=== PATIENT | female | born 1960 | race Caucasian/White ===

== ENCOUNTER 2017-11-17 14:14 | Day surgery (SDC) | payer SELFPAY ==
[2017-11-14 15:48] LABS: Hematocrit 41.2 % (37-47); Hemoglobin 13.1 g/dl (12.0-15.0); Mean Corp Hgb Conc 31.8 g/gl (32-36); Mean Corpuscular Hgb 30.9 pg (27.0-32.0); Mean Corpuscular Volume 97.2 fL (81-99); Platelet Count 248 K/mm3 (150-450); RBC Distribution Width CV 14.4 % (11.6-14.6); RBC Distribution Width SD 51.4 fl (35.1-43.9); Red Blood Count 4.24 M/mm3 (4.2-5.4); Scan Indicated on CBC? Y/N NO; White Blood Count 7.1 K/mm3 (4.4-11.0)
[2017-11-14 16:12] LABS: Anion Gap 11 (5-15); BUN 11 mg/dL (7-18); BUN/Creat Ratio 10.6 RATIO (10-20); Chloride 109 mmol/L (98-107); Creatinine, Serum 1.04 mg/dL (0.55-1.02); EST Glomerular Filtration Rate 58 mL/min (>60); Est Glom Filt Rate - Afr Amer 71 mL/min (>60); Glucose 75 mg/dL (74-106); Potassium 3.6 mmol/L (3.5-5.1); Sodium Level 140 mmol/L (136-145)
[2017-11-17 14:33] VITALS: BP 160/96; PULSE 74; RESP 16; TEMP 36.8; O2SAT 100; BMI 32.7
[2017-11-17] MEDS: Celecoxib 200 MG Capsule 400 MG PO (14:53)
[2017-11-17] MEDS: Acetaminophen 500 MG Tablet 1000 MG PO (14:53)
--- NOTE | 2017-11-17 16:07 | PCM.DC.D&C ---
Discharge Diet: No Restrictions Discharge Activity: Return to Normal Activity, May Shower, May Take a Tub Bath - in 2 weeks. May resume sexual activity in: 2 weeks Call your doctor if your incision/area has: Continuous Slow Oozing, Sudden Increased Bleeding, Foul Smelling Discharge Call your doctor if you observe: Fever of 101 or Higher, Using more than one pad per hour Allergies/Adverse Reactions: Allergies clindamycin Adverse Reaction (Verified 11/10/17 11:12) Diarrhea Medications to take at Discharge Topiramate [Topamax] 200 mg PO BID 01/05/17 buPROPion tablets [Wellbutrin tablets] 100 mg PO DAILY 01/05/17 Primary Care Physician: Care Physician,No Primary [Primary Care Provider] - Test Results: Test results from this visit will be discussed in further detail at your follow-up appointment, if applicable. Please Follow Up With: Carlyn Perez MD - [phone] When: 2-4 weeks or prn
--- NOTE | 2017-11-17 16:41 | PCM.OPRPT ---
Report of Operation Date of Procedure: 11/17/17 Pre-Operative Diagnosis: PMB, thickened endometrium, bicornuate uterus Post-Operative Diagnosis: same Surgery/Procedure Performed:: Hysteroscopy dilation and curettage Description of Surgical Findings:: thin endometrium, bicornuate w/ 2 sided cavity, no focal fibroids or polyps green building engineer: Robbie Khan Type of Anesthesia:: MAC/Supplemental/Local Special Medications: none Specimen's removed: endometrial curettings Drains: none Estimated Blood Loss (mL): 15cc Fluids Replaced: 1000 cc LR Description of Procedure: The patient was taken to the OR where she was prepped and draped in dorsal lithotomy position. The weighted speculum was placed in the vagina and the anterior lip of the cervix was grasped with a single-tooth tenaculum. A paracervical block was administered with 1% lidocaine with 1-100,000 epinephrine solution. The cervix was dilated serially with Hegar dilators. The 5mm hysteroscope was placed into the uterine cavity and the above findings were noted. Bilateral tubal ostia were identified. There division between the 2 sides of the bicornuate uterus was very distinct and extended down to the level of the internal cervical loss. The hysteroscope was removed. A gentle sharp curettage was done of the uterine cavity. The instruments were removed from the vagina. The specimen was handed off and sent to pathology. All sponge and needle counts were correct. Vaginal sweep was performed by me. The patient was awakened and taken to the recovery room in stable condition. The hysteroscopic fluid deficit was 0 cc the symphion scope and fluid management system was used Grafts/Implants Used: none - Complications none - Admit VTE Documentation VTE Present on Admission: No VTE Mechan Device Prophylaxis: SCD's VTE Pharm Prophylaxis ordered?: No Reason prophylaxis not ordered:: Procedure Not Indicated
[2017-11-17 16:49] VITALS: BP 124/72; BP 160/96; PULSE 91; RESP 16; TEMP 36.1; O2SAT 94
[2017-11-17 16:55] VITALS: BP 117/72; BP 160/96; PULSE 88; RESP 16; O2SAT 96
[2017-11-17 17:00] VITALS: BP 113/74; BP 160/96; PULSE 86; RESP 16; O2SAT 96
[2017-11-17 17:04] VITALS: BP 112/76; BP 160/96; PULSE 88; RESP 16; TEMP 36.6; O2SAT 98
[2017-11-17] MEDS: HYDROcodone Bitartrate/Apap 5/325 Tablet PO (17:28)
[2017-11-17 17:55] VITALS: BP 133/72; BP 160/96; PULSE 76; RESP 18; TEMP 36.6; O2SAT 100
--- NOTE | 2017-11-18 | EMB_PTH ---
PATIENT: CELINA BURGOS LOC: [facility] U#:[id number] AGE/SX: 56/F ROOM: RE11/17/[address]: Dr. Carlyn Perez MD : 1960 BED: DIS: 11/17/2017 SPEC #: [id number] RECD: 11/18/17 10:08 STATUS: RADHA REMichael #: [id number] CHARO: 11/18/17 00:[address]: Carlyn Perez DEPT: SURGICAL PATHOLOGY RECD BY: Hakeem Anne ENTERED: 11/18/17 10:09 SP TYPE: ENDOM BX/C ROSALIE DR: No Primary Care Phys Tissues: Endometrium, NOS Procedures: Surgery Specimen Level IV HEADER OPERATION: Hysteroscopy, D & C PRE-OP DIAGNOSIS: Postmenopausal bleeding, thickened endometrium TISSUE SUBMITTED: Endometrial curettings MICROSCOPIC DIAGNOSIS Endometrial curettings: Scant strips of benign endometrial epithelium and superficial fragments of benign endometrial tissue, consistent with atrophic endometrium. Fragments of benign ecto- and endocervical mucosa. FERNANDO:ayaka 11/22/17 MICROSCOPIC DESCRIPTION Slides are reviewed. GROSS DESCRIPTION Received in fixative is one container labeled with the patient's name and designated endometrial curettings. The specimen consists of multiple minute and mucoid fragments of dozier tissue that in aggregate measure 0.5 x 0.3 x <0.1 cm. The specimen is totally submitted in one cassette. / AM:ayaka 11/18/17 TC:4 CPT: 15270
== END 2017-11-17 18:01 | disposition home or self-care (01) ==
LOC: SDC 14:20 → AC 14:21
PROVIDERS: Visit Provider Obstetrics & Gynecology
PROC: (CPT 58558; principal; 2017-11-17 15:35)
DX: N95.0 Postmenopausal bleeding (principal); Q51.3 Bicornate uterus; R93.8 Abnormal findings on diagnostic imaging of other specified body structures; N85.8 Other specified noninflammatory disorders of uterus; F32.9 Major depressive disorder, single episode, unspecified; F17.210 Nicotine dependence, cigarettes, uncomplicated; Z79.899 Other long term (current) drug therapy; Z85.3 Personal history of malignant neoplasm of breast
CPT/HCPCS: 00952; 58558; 36415; 80048; 85027; 86850; 86900; 88305; J7120

== ENCOUNTER 2018-03-03 14:34 | Emergency (ER) | payer SELFPAY ==
[2018-03-03 14:35] VITALS: PULSE 90; RESP 16; TEMP 37.1; O2SAT 98; BMI 28.3
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
[2018-03-03 16:20] VITALS: BP 108/76; PULSE 59; RESP 16; O2SAT 99
[2018-03-03 17:43] LABS: HIV - WCH Non-Reactive (Nonreactive)
[2018-03-06 10:37] LABS: HEPATITIS B SURFACE AG Negative (Negative); Hep B Surface Antibodies EMP Reactive (.); Hep C Antibodies 0.1 s/co ratio (0.0-0.9)
--- OUTSIDE RECORDS SUMMARY | 2018-06-07 06:31 | XMS RPT_ITS ---
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 ER) 10 mg ER tablet Take 30 mg by mouth once daily. PAST MEDICAL HISTORY Diagnosis Date - History of breast cancer - HSV-1 infection genital PAST SURGICAL HISTORY Procedure Laterality Date - SECTION HX 1990 - HERNIA REPAIR HX 05/2009 - MASTECTOMY HX Bilateral 05/05/2009 FAMILY HISTORY Problem Relation Age of Onset - Breast Cancer Mother Social History Marital status: Spouse name: Years of education: Number of children: Occupational History Occupation Employer Comment member [employer] Social History Main Topics Smoking status: Current Every Day Smoker Packs/day: 0.50 Years: 5.00 Types: Cigarettes Smokeless tobacco: Never Used Comment: vape Alcohol use: Yes Comment: occ Drug use: No Sexual activity: Yes Partners with: Male control/protection: None REVIEW OF SYSTEMS: General: No chills, fever, weight loss, night sweats. SHEENT: No change in vision or auditory acuity. Respiratory: No productive cough. Cardiac: As noted above. GI: No melena. : No dysuria. Musculoskeletal: No myalgias. Neurologic: No strokes. Psychiatric: No depression. Endocrine: No diabetes. Hematologic: No anemia. PHYSICAL EXAMINATION: S/he is alert and in no distress VITAL SIGNS: BP 136/87 Pulse 98 Wt 174 lb 9.6 oz (79.2kg) LMP 08/29/2017 SHEENT: Skin is warm and dry. Pupils are round and reactive. Retinal vessels are grossly unremarkable. No xanthelasmas appreciated. Pharynx is benign. There is no oral cyanosis. Neck: supple. No adenopathy or thyroid enlargement. Chest: Clear to percussion and auscultation. Trachea is midline. Air entry is equal. There is no chest wall tenderness. Cardiac: Regular rhythm. S1 and S2 are normal. PMI is nondisplaced. There are no murmurs, rubs or gallops. No click is heard. Carotids are brisk without bruits. JVP is less than 10 cm. Abdomen: Soft and nontender. There are no pulsatile masses or bruits. No liver enlargement. Bowel sounds are active. : Deferred. Extremities: No edema. Pulses are intact and symmetrical. No clubbing or cyanosis. No femoral bruits. Neurologic: Grossly normal motor and sensory. S/he is alert and oriented x4. Musculoskeletal: No joint deformities. EKG shows left axis deviation. There is slow R wave progression, likely secondary to the conduction abnormality. Recent lower extremity venous Doppler examination was negative for thrombosis. Recent labs reviewed. CBC is within normal limits. Renal function is borderline low. Electronically Signed: Rock King MD November 15, 2017 3:47 PM CC: No primary care provider on file. Rock King MD 11/15/2017 3:48 PM Signed LIFESTYLE CHANGE A healthy lifestyle is the most important component of your overall treatment plan. Please give serious thought to the following areas and commit to making intermediate card tender changes. EAT A WHOLE FOOD, PLANT BASED DIET The nutrition your body gets is more important than the medicine you take. What matters most is the overall way you eat. We encourage you to minimize the use of animal products (which include dairy and all meats except fatty fish) and use whole, unprocessed plant foods to provide your protein, vitamins and other nutrients. We have a lot of information to share with you on this topic. This is not a diet. It is a way of life that you will keep with you. EXERCISE REGULARLY It is not important to spend hours in the gym, lifting weights and perspiring heavily. A total of 2-3 hours per week of aerobic (causing you to be moderately short of breath) exercise is sufficient to improve your health. Talk to us before you begin a new exercise program, if you have heart disease or experience shortness of breath or chest pain. REDUCE STRESS Chronic emotional and physical stress leads to disease. Ways of reducing stress include meditation, visualization, prayer, yoga and other forms of relaxation therapy. Consistency is the torres. Find a technique that works for you and do it every day. CULTIVATE RELATIONSHIPS Loneliness and isolation have a major negative impact on health. Seek out others who can love, care for and nurture you. Avoid hurtful relationships. MAINTAIN IDEAL BODY WEIGHT The best way to do this is to do all the things above. Our bodies naturally find the right weight if we keep moving and feed ourselves the right food. If your BMI is greater than 25, we strongly recommend a referral to a weight management program. Please speak to us or your family physician about available programs. AVOID NICOTINE IN ALL FORMS This includes all tobacco products, whether chewed, smoked, vaped, or rubbed on the skin. Smoking cessation programs, which can make use of tobacco substitutes, medications to suppress cravings and behavior management, are available. Please contact your family physician about programs in your area. Referring Provider: ROCK KING [[id number]] Allergies As of Date: 11/15/2017 Noted Allergy Reaction CLINDAMYCIN 01/05/2017 6 - Diarrhea Date Reviewed: 11/15/2017 Reviewed by: Tu Gay RN - Fully Assessed Reason for Visit: Consult [502] Visit Diagnosis:Preop cardiovascular exam [Z01.810] Order(s):ECG COMPLETE W INTERPRETATION [ECG01] Order #: [id number] FUTURE COMPLETE ECG [4741684] Order #: [id number]. #:[id number]--BVMBekcZvl: 1 Prescriptions as of 11/15/2017 Sig: IBUPROFEN 600 MG TABLET Take 1 tablet by mouth every * TOPIRAMATE 200 MG TABLET Take 200 mg by mouth twice da* BUPROPION HCL 100 MG TABLET Take 100 mg by mouth twice da* METHYLPHENIDATE ER 10 MG TABL* Take 30 mg by mouth once vladimir* Problem List As Of Date 11/15/2017 Noted Resolved Obesity, Class I, BMI 30-34.9 [E66.9] INVALID FOR* Other instructions from your clinician: LIFESTYLE CHANGE A healthy lifestyle is the most important component of your overall treatment plan. Please give serious thought to the following areas and commit to making fci changes. EAT A WHOLE FOOD, PLANT BASED DIET The nutrition your body gets is more important than the medicine you take. What matters most is the overall way you eat. We encourage you to minimize the use of animal products (which include dairy and all meats except fatty fish) and use whole, unprocessed plant foods to provide your protein, vitamins and other nutrients. We have a lot of information to share with you on this topic. This is not a diet. It is a way of life that you will keep with you. EXERCISE REGULARLY It is not important to spend hours in the gym, lifting weights and perspiring heavily. A total of 2-3 hours per week of aerobic (causing you to be moderately short of breath) exercise is sufficient to improve your health. Talk to us before you begin a new exercise program, if you have heart disease or experience shortness of breath or chest pain. REDUCE STRESS Chronic emotional and physical stress leads to disease. Ways of reducing stress include meditation, visualization, prayer, yoga and other forms of relaxation therapy. Consistency is the torres. Find a technique that works for you and do it every day. CULTIVATE RELATIONSHIPS Loneliness and isolation have a major negative impact on health. Seek out others who can love, care for and nurture you. Avoid hurtful relationships. MAINTAIN IDEAL BODY WEIGHT The best way to do this is to do all the things above. Our bodies naturally find the right weight if we keep moving and feed ourselves the right food. If your BMI is greater than 25, we strongly recommend a referral to a weight management program. Please speak to us or your family physician about available programs. AVOID NICOTINE IN ALL FORMS This includes all tobacco products, whether chewed, smoked, vaped, or rubbed on the skin. Smoking cessation programs, which can make use of tobacco substitutes, medications to suppress cravings and behavior management, are available. Please contact your family physician about programs in your area. Follow-up and Disposition History Recorded Encounter Status:Closed by ROCK KING MD on 11/15/17 CNNURSE Observed: 11/15/2017 Status: COMPLETED Source: [place] 1:45 PM [facility] REPOSITORY Nurse Visit (CAWSTR) CELINA MORGAN ([id number]) 1960 F Date Time Provider Department 11/15/17 1:45 PM [facility] During your visit today, we recorded the following information about you: Tu Gay RN 11/16/2017 5:13 PM Signed Ekg completed per order. Pt tolerated procedure without distress. Tu Gay RN Referring Provider: ROCK KING [[id number]] Allergies As of Date: 11/15/2017 Noted Allergy Reaction CLINDAMYCIN 01/05/2017 6 - Diarrhea Date Reviewed: 11/15/2017 Reviewed by: Tu Gay RN - Fully Assessed Reason for Visit: Nurse Visit [792] Visit Diagnosis:Preop cardiovascular exam [Z01.810] Order(s):ECG COMPLETE W INTERPRETATION [ECG01] Order #: [id number] Prescriptions as of 11/15/2017 Sig: IBUPROFEN 600 MG TABLET Take 1 tablet by mouth every * TOPIRAMATE 200 MG TABLET Take 200 mg by mouth twice da* BUPROPION HCL 100 MG TABLET Take 100 mg by mouth twice da* METHYLPHENIDATE ER 10 MG TABL* Take 30 mg by mouth once vladimir* Problem List As Of Date 11/15/2017 Noted Resolved Obesity, Class I, BMI 30-34.9 [E66.9] INVALID FOR* Visit Notes: >> Tu Gay RN TueNov 16, 2017 5:12 PM Status: Signed Ekg completed per order. Pt tolerated procedure without distress. Tu Gay RN Encounter Status:Closed by TU GAY RN on 11/16/17 CBC-COMPLETE BLOOD CNT Collected: 11/14/2017 Status: F Source: [place] NO DIFF 2:39 PM [facility] REPOSITORY TYPE CODE TESTS RESULT OUT OF RANGE REFERENCE UNITS LAB L100.1000 4.4-11.0 K/mm3 Normal WBC 7.1 LAB L100.1200 4.2-5.4 M/mm3 Normal RBC 4.24 LAB L100.1300 12.0-15.0 g/dl Normal HGB 13.1 LAB L100.1400 37-47 % Normal HCT 41.2 LAB L100.1500 81-99 fL Normal MCV 97.2 LAB L100.1600 27.0-32.0 pg Normal MCH 30.9 LAB L100.1700 32-36 g/gl Low MCHC 31.8 LAB L100.1810 11.6-14.6 % Normal RDW CV 14.4 LAB L100.1820 35.1-43.9 fl High RDW SD 51.4 LAB L100.1900 150-450 K/mm3 Normal PLT 248 LAB L100.2000 6.2-12.0 fl Normal MPV 10.0 Performed By: #### L100.0500 #### [facility] [address] [place], [place], [id number] BASIC METABOLIC Collected: 11/14/2017 Status: F Source: [place] PROFILE (BMP) 2:39 PM [facility] REPOSITORY TYPE CODE TESTS RESULT OUT OF RANGE REFERENCE UNITS LAB L501.0100 74-106 mg/dL Normal GLU 75 Result Comment: Please note revised GLUCOSE reference range effective 2017. LAB L501.1000 7-18 mg/dL Normal BUN 11 LAB L501.1100 0.55-1.02 mg/dL High CREAT,SERUM 1.04 Result Comment: The validity of the calculated GFR AND GFRAA in patients over 70 years has not been determined. Clinical correlation is essential. LAB L501.1110 >60 mL/min Low EST GFR 58 Result Comment: Non- GFR Calc LAB L501.1115 >60 mL/min Normal EST GFR - AA 71 Result Comment: GFR Calc LAB L501.1300 10-20 RATIO Normal BUN/CRE 10.6 LAB L501.2200 8.5-10.1 mg/dL CA Normal 9.0 LAB L501.5300 136-145 mmol/L NA Normal 140 LAB L501.5600 3.5-5.1 mmol/L K Normal 3.6 LAB L501.5900 98-107 mmol/L High CL 109 LAB L501.6100 21.0-32.0 mmol/L Low CO2 20.0 LAB L501.6200 5-15 Normal GAP 11 Performed By: #### L500.2500 #### [facility] [address] [place], [place], [address] TYPE AND SCREEN Collected: 11/14/2017 Status: F Source: [place] 2:39 PM [facility] REPOSITORY Order Comment: Surgery Date: 11/17/17 Hx of Preganancy in last 3 Months No Ever experience any problems with transfusion(s)? N Hx of Transfusion in last 3 Months N Reason for Type AND Screen/Red Cells: SURGERY Time: 0000 SURGICAL PROCEDURE: HYSTEROSCOPY TYPE CODE TESTS RESULT OUT OF RANGE REFERENCE UNITS LAB B10.0800 A Normal BLOOD TYPE GEL POSITIVE LAB B100.4000 Normal Antibody NEGATIVE Screen Performed By: #### B101.7475 #### [facility] [address] [place], [place], [address] HISTORY PHYSICAL Observed: 11/09/2017 Status: COMPLETED Source: [place] 11:23 AM [facility] REPOSITORY O ID: [id number] Author: Floridalma Sterling Service: (none) Author Type: Physician Type: HANDP Filed: 11/09/2017 11:50 AM Note Text: Pre-Op History and Physical HPI: The patient is a 56 year old female presenting for pre-operative visit. She is scheduled for hysteroscopy dilation and curettage and polyp resection, for PMB and thickened endometrium on 11/17/17. Procedure discussed along with risks, benefits and complications. Other alternatives discussed for management. Consent form signed? Yes. PAST MEDICAL HISTORY Diagnosis Date - History of breast cancer - HSV-1 infection genital PAST SURGICAL HISTORY Procedure Laterality Date - SECTION HX 1990 - HERNIA REPAIR HX 05/2009 - MASTECTOMY HX Bilateral 05/05/2009 Current Outpatient Prescriptions: topiramate (TOPAMAX) 200 mg tablet Take 200 mg by mouth twice daily. Disp: Rfl: buPROPion (WELLBUTRIN) 100 mg tablet Take 100 mg by mouth twice daily. 2 tabs in am, 1 tab in pm Disp: Rfl: methylphenidate ER (METADATE ER) 10 mg ER tablet Take 30 mg by mouth once daily. Disp: Rfl: No current facility-administered medications for this visit. ALLERGIES: Clindamycin PERSONAL HISTORY: Social History Marital status: Spouse name: Years of education: Number of children: Occupational History Occupation Employer Comment member [employer] Social History Main Topics Smoking status: Current Every Day Smoker Packs/day: 0.50 Years: 5.00 Types: Cigarettes Smokeless tobacco: Never Used Comment: vape Alcohol use: Yes Comment: occ Drug use: No Sexual activity: Yes Partners with: Male control/protection: None FAMILY HISTORY: FAMILY HISTORY Problem Relation Age of Onset - Breast Cancer Mother REVIEW OF SYMPTOMS: GENERAL: denies fevers or chills ENDOCRINOLOGY: has not been on steroids Cardiology : denies palpitations or chest pain Respiratory: denies SOB or cough Hematology: denies history of prolonged bleeding or easy bruising or VTE Allergy: Denies history of personal or family history of allergy to anesthesia PHYSICAL EXAMINATION: VITALS: There were no vitals taken for this visit. GENERAL: The patient is well nourished, well hydrated in no acute distress. , The patient is oriented to time, place, and person. NECK: Supple. No lynphadenopathy, normal thyroid, no thyromegaly. LUNGS: Clear to auscultation bilaterally. no wheezes, rhonchi or rales HEART: Regular rate and rhythm, Normal heart sounds and No murmurs or gallops PELVIC US- DATE OF EXAM: Oct 03 2017 ?3:19PM ? [facility] ? 1060 ?- ?US FEMALE PELVIS TRANSVAG ?/ PROCEDURE REASON: Postmenopausal bleeding ?? ? * * * * Physician Interpretation * * * * ?EXAMINATION: ?US FEMALE PELVIS TRANSVAG CLINICAL HISTORY: ? Postmenopausal bleeding Comparison: None RESULT: Uterus measures 13.1 x 9.6 x 6.6 cm. ?Small subendometrial cyst in the mid uterine body posteriorly measures 0.9 cm. Bicornuate and/or septate uterus. ?Endometrium appears uniform , and measures 0.8 cm. on both sides. Right ovary is not visualized with the transabdominal or endovaginal probe. ?Left ovary appears normal and measures 2.5 x 2.4 x 1.7 cm. No free pelvic fluid. No evidence of pathologic adnexal mass. Pap and HPV neg 10/18// IMPRESSION: PMB, thickened endometrium PLAN: The risks/benefits/alternatives and personal involved for the planned hysteroscopy dilation and curettage and polyp resection were reviewed with the patient. Her questions were answered to her satisfaction and she desires to proceed. Consent was signed. I reviewed with her postop instructions and expectations. I have reviewed and updated past medical and surgical history, medications and allergies Floridalma Sterling M.D. CNOV Observed: 11/09/2017 Status: COMPLETED Source: [place] 11:10 AM [facility] REPOSITORY Office Visit (WOOB) CELINA MORGAN ([id number]) 1960 F Date Time Provider Department 11/09/17 11:10 AM FLORIDALMA STERLING WOOB During your visit today, we recorded the following information about you: Blood pressure Weight Height 120/82 78.9 kg 1.549 m Floridalma Sterling MD 11/09/2017 11:50 AM Signed Pre-Op History and Physical HPI: The patient is a 56 year old female presenting for pre- operative visit. She is scheduled for hysteroscopy dilation and curettage and polyp resection, for PMB and thickened endometrium on 11/17/17. Procedure discussed along with risks, benefits and complications. Other alternatives discussed for management. Consent form signed? Yes. PAST MEDICAL HISTORY Diagnosis Date - History of breast cancer - HSV-1 infection genital PAST SURGICAL HISTORY Procedure Laterality Date - SECTION HX 1990 - HERNIA REPAIR HX 05/2009 - MASTECTOMY HX Bilateral 05/05/2009 Current Outpatient Prescriptions: topiramate (TOPAMAX) 200 mg tablet Take 200 mg by mouth twice daily. Disp: Rfl: buPROPion (WELLBUTRIN) 100 mg tablet Take 100 mg by mouth twice daily. 2 tabs in am, 1 tab in pm Disp: Rfl: methylphenidate ER (METADATE ER) 10 mg ER tablet Take 30 mg by mouth once daily. Disp: Rfl: No current facility-administered medications for this visit. ALLERGIES: Clindamycin PERSONAL HISTORY: Social History Marital status: Spouse name: Years of education: Number of children: Occupational History Occupation Employer Comment member [employer] Social History Main Topics Smoking status: Current Every Day Smoker Packs/day: 0.50 Years: 5.00 Types: Cigarettes Smokeless tobacco: Never Used Comment: vape Alcohol use: Yes Comment: occ Drug use: No Sexual activity: Yes Partners with: Male control/protection: None FAMILY HISTORY: FAMILY HISTORY Problem Relation Age of Onset - Breast Cancer Mother REVIEW OF SYMPTOMS: GENERAL: denies fevers or chills ENDOCRINOLOGY: has not been on steroids Cardiology : denies palpitations or chest pain Respiratory: denies SOB or cough Hematology: denies history of prolonged bleeding or easy bruising or VTE Allergy: Denies history of personal or family history of allergy to anesthesia PHYSICAL EXAMINATION: VITALS: There were no vitals taken for this visit. GENERAL: The patient is well nourished, well hydrated in no acute distress. , The patient is oriented to time, place, and person. NECK: Supple. No lynphadenopathy, normal thyroid, no thyromegaly. LUNGS: Clear to auscultation bilaterally. no wheezes, rhonchi or rales HEART: Regular rate and rhythm, Normal heart sounds and No murmurs or gallops PELVIC US- DATE OF EXAM: Oct 03 2017 ?3:19PM ? [facility] ? 1060 ?- ?US FEMALE PELVIS TRANSVAG ?/ PROCEDURE REASON: Postmenopausal bleeding ?? ? * * * * Physician Interpretation * * * * ?EXAMINATION: ?US FEMALE PELVIS TRANSVAG CLINICAL HISTORY: ? Postmenopausal bleeding Comparison: None RESULT: Uterus measures 13.1 x 9.6 x 6.6 cm. ?Small subendometrial cyst in the mid uterine body posteriorly measures 0.9 cm. Bicornuate and/or septate uterus. ?Endometrium appears uniform , and measures 0.8 cm. on both sides. Right ovary is not visualized with the transabdominal or endovaginal probe. ?Left ovary appears normal and measures 2.5 x 2.4 x 1.7 cm. No free pelvic fluid. No evidence of pathologic adnexal mass. Pap and HPV neg 10/18// IMPRESSION: PMB, thickened endometrium PLAN: The risks/benefits/alternatives and personal involved for the planned hysteroscopy dilation and curettage and polyp resection were reviewed with the patient. Her questions were answered to her satisfaction and she desires to proceed. Consent was signed. I reviewed with her postop instructions and expectations. I have reviewed and updated past medical and surgical history, medications and allergies Floridalma Sterling M.D. Referring Provider: SELF [[id number]] Allergies As of Date: 11/09/2017 Noted Allergy Reaction CLINDAMYCIN 01/05/2017 6 - Diarrhea Date Reviewed: 11/09/2017 Reviewed by: Floridalma Sterling - Fully Assessed Primary Visit Diagnosis:PMB (postmenopausal bleeding) [N95.0] Other Visit Diagnoses:Postoperative pain [G89.18] Endometrial polyp [N84.0] Order(s):HYDROcodone-acetaminophen (NORCO) 5-325 mg per tabletTake 1-2 tablets by mouth every 6 hours as needed for Pain for up to 3 days.Disp: 12 tabletRfl: 0 ibuprofen (MOTRIN) 600 mg tabletTake 1 tablet by mouth every 6 hours as needed for Pain. FOR PAIN.Disp: 30 tabletRfl: 0 Prescriptions as of 11/09/2017 Sig: TOPIRAMATE 200 MG TABLET Take 200 mg by mouth twice da* BUPROPION HCL 100 MG TABLET Take 100 mg by mouth twice da* HYDROCODONE 5 MG-ACETAMINOPHE* Take 1-2 tablets by mouth omayra* IBUPROFEN 600 MG TABLET Take 1 tablet by mouth every * METHYLPHENIDATE ER 10 MG TABL* Take 30 mg by mouth once vladimir* Problem List As Of Date 11/09/2017 Noted Resolved Obesity, Class I, BMI 30-34.9 [E66.9] INVALID FOR* Prescriptions ordered this encounter Disp Refills Start End HYDROCODONE 5 MG-ACETAMINOPHEN 325 M* 12 t* 0 11/09/2017 11/12/2017 Class: Print RX Route: ORAL Sig: Take 1-2 tablets by mouth every 6 hours as needed for Pain for up to 3 days. IBUPROFEN 600 MG TABLET 30 t* 0 11/09/2017 Route: ORAL Sig: Take 1 tablet by mouth every 6 hours as needed for Pain. FOR PAIN. Encounter Status:Closed by FLORIDALMA STERLING MD on 11/09/17 PROGRESS Observed: 10/25/2017 Status: COMPLETED Source: [place] 2:39 PM [facility] [place] REPOSITORY HNO ID: [id number] Author: Floridalma Botello PSR Service: (none) Author Type: (none) Type: Progress Notes Filed: 10/25/2017 2:40 PM Note Text: Pap logged and Normal Pap letter sent to patient Floridalma Botello PSR PROGRESS Observed: 10/25/2017 Status: COMPLETED Source: [place] 12:50 PM [facility] [place] REPOSITORY HNO ID: [id number] Author: Floridalma Sterling Service: (none) Author Type: Physician Type: Progress Notes Filed: 10/25/2017 12:50 PM Note Text: Please send letter about normal pap and follow up one year. Floridalma Sterling MD HPV W/GENOTYPE Collected: 10/18/2017 Status: F Source: [place] 5:10 PM [facility] REPOSITORY TYPE CODE TESTS RESULT OUT OF REFERENCE UNITS RANGE LAB HPVT16 HPV HighRisk Negative for Type 16 HPV DNA high risk type 16 by PCR. LAB HPVT18 HPV HighRisk Negative for Type 18 HPV DNA high risk type 18 by PCR. LAB HPVHRO HPV HighRisk Negative for Other HPV DNA high risk types: 31,33,35,39,45 ,51,52,56,58,5 9,66,68 by PCR. Result Comment: This test was developed and its performance characteristics determined by [facility]'s [facility] [place] ([facility] It has not been cleared or approved by the FDA. [facility] is regulated under CLIA as qualified to perform high-complexity testing. This test is used for clinical purposes. It should not be regarded as inv estigational or for research. Performed By: #### HPVHRR #### [facility] [address] [place], [place] [address] CYTOLOGY Observed: 10/18/2017 Status: C Source: [place] 5:10 PM [facility] [place] REPOSITORY ADDITIONAL PROCEDURES PRESENT Specimen originated from [facility] Specimen #: [id number] Submitting Physician: FLORIDALMA STERLING M.D. ([id number]) SPECIMEN SUBMITTED A: CERVICAL, SCREENING, FLUID FINAL DIAGNOSIS A. CERVICAL, SCREENING, FLUID Satisfactory for interpretation. Negative for intraepithelial lesion or malignancy. Acute inflammation. This specimen has been analyzed by the ThinPrep Imaging System, an automated imaging and review system, which assists the laboratory in evaluating cells on ThinPrep Pap tests. Following automated imaging, selected boyd from every slide are reviewed by a bolt header. ESTELLA Cunha(ASCP) (Electronic Signature) ADDITIONAL PROCEDURE(S) HUMAN PAPILLOMA VIRUS Date Ordered: 10/20/2017 Date Reported: 10/21/2017 Procedure Results and Interpretation Negative for HPV DNA high risk type 16 by PCR. Negative for HPV DNA high risk type 18 by PCR. Negative for HPV DNA high risk types: 31,33,35,39,45,51,52,56,58,59,66,68 by PCR. This test was developed and its performance characteristics determined by [facility]'s Blade Adkins [facility] Pathology and Laboratory Medicine [place] [facility] It has not been cleared or approved by the FDA. [facility] is regulated under CLIA as qualified to perform high-complexity testing. This test is used for clinical purposes. It should not be regarded as investigational or for research. CLINICAL DATA ROUTINE EXAM, HPV Testing: Yes, automatic HPV patients over 30 Date of Last Menstrual Period: 08/29/2017 STAINS A: CERVICAL, SCREENING, FLUID THIN PREP GRAIN UNLOADER MACHINE Lurdes Pickett M.D., Project Controls Scheduler Date of Report: 10/25/2017 Date of Procedure: 10/18/2017 Date of Receipt: 10/20/2017 Submitted by: FLORIDALMA STERLING M.D. ([id number]) Location: [facility] Diagnostic interpretation performed at [facility], [address] [place], [place] [id number]. The Pap Smear is a screening test for cervical cancer. False negative results occur with all screening tests, emphasizing the need for rescreening at recommended intervals, and clinical correlation. GC/CHLAMYDIA AMPLIF Collected: 10/18/2017 Status: F Source: [place] 9:30 AM [facility] REPOSITORY TYPE CODE TESTS RESULT OUT OF REFERENCE UNITS RANGE LAB GCCTSR GC/Chlam Amp Cervix Source LAB GCAMPL GC Negative Amplification for Neisseria gonorrhoeae by amplification. LAB CLAMPL Chlamydia Negative Amplif for Chlamydia trachomatis by amplification. Performed By: #### GCCT #### [address], [place] [address] PROGRESS Observed: 10/18/2017 Status: COMPLETED Source: [place] 8:57 AM [facility] REPOSITORY HNO ID: [id number] Author: Floridalma Sterling Service: (none) Author Type: Physician Type: Progress Notes Filed: 10/18/2017 5:51 PM Note Text: 56 year old who presents with complaints of PMB. No menses for 3 years and then had heaviness. had a bleed in mid August, was 2 weeks. Was fairly heavy and changed heavy pads several times a day. No SOB/lightheadedness. She had h/o breast cancer and was on tamoxifen until about a year ago. Pelvic pain is achy. Pressure. Has had a lot of surgery on abdomen due to breast reconstruction, one c/s. 7 vaginal deliveries. one DANDC after miscarriage and 3 other miscarriages. LMP: Patient's last menstrual period was 08/29/2017 (exact date). n/a Heavy bleeding? Yes Intermenstrual bleeding/spotting? No Dysmenorrhea? No History of fibroids? No History of endometrial polyps? No Sexually active: Yes History of STDS: None Patient concerns for STD exposure: Yes: + HSV 1 test of lesion, partner w/ h/o oral HSV Pain with intercourse: No Postcoital bleeding: No Last Pap: many years uncertaion HPV: uncertain History of abnormal pap: No PAST MEDICAL HISTORY Diagnosis Date - History of breast cancer PAST SURGICAL HISTORY Procedure Laterality Date - SECTION HX 1990 - HERNIA REPAIR HX 05/2009 - MASTECTOMY HX Bilateral 05/05/2009 FAMILY HISTORY Problem Relation Age of Onset - Breast Cancer Mother SOCIAL HISTORY Social History Substance Use Topics - Smoking status: Current Every Day Smoker Packs/day: 0.50 Years: 5.00 Types: Cigarettes - Smokeless tobacco: Never Used Comment: vape - Alcohol use Yes Comment: occ REVIEW OF SYSTEMS No recent weight gain or weight loss. Abdomen: No abdominal pain, nausea, vomiting, diarrhea, or constipation. No bloating, early satiety, indigestion, or increased flatulence. Bladder: see HPI. EXAM: BP 126/84 Wt 171 lb (77.6kg) LMP 08/29/2017 GENERAL: pleasant, female in no apparent distress ABDOMEN: soft, no hernia, no masses, Mild tenderness in Generalized, rebound Absent and guarding Absent PELVIC: external genitalia normal, normal mons, normal hair distribution pattern, normal labia. normal Bartholin's glands, urethra, Hyder's glands, no vulvar lesions, normal appearing perineal body and perianal region, cervix surgically absent, cystocele 1st degree, rectocele 1st degree, atrophic changes, normal cervix, no lesions. No blood in vault BIMANUAL: uterus normal size, shape and consistency, no adnexal masses and non-tender RECTOVAGINAL: deferred. ASSESSMENT: PMB, thickened endometrium, genital HSV type 1, endometrial polyps PLAN: Reviewed US, endometrial biopsy that showed thickened endometrium and polyp tissue respectively. R/b/A/P to hysteroscopy DANDC w/ possible polyp resection were reviewed, her questions were answered to her satisfaction and she desires to proceed. HSV- gential type 1. reviewed this w/ her. Partner w/ h/o oral HSV. reassured they will not reinfect each other. However, d/w her she would be contagious to other partners potentially. Transmission reviewed Floridalma Sterling MD CNOV Observed: 10/18/2017 Status: COMPLETED Source: [place] 8:40 AM [facility] REPOSITORY Office Visit (WOOB) CELINA MORGAN ([id number]) 1960 F Date Time Provider Department 10/18/17 8:40 AM FLORIDALMA STERLING During your visit today, we recorded the following information about you: Blood pressure Weight Last Period 126/84 77.6 kg 08/29/17 Floridalma Sterling MD 10/18/2017 5:51 PM Signed 56 year old who presents with complaints of PMB. No menses for 3 years and then had heaviness. had a bleed in mid August, was 2 weeks. Was fairly heavy and changed heavy pads several times a day. No SOB/lightheadedness. She had h/o breast cancer and was on tamoxifen until about a year ago. Pelvic pain is achy. Pressure. Has had a lot of surgery on abdomen due to breast reconstruction, one c/s. 7 vaginal deliveries. one DANDC after miscarriage and 3 other miscarriages. LMP: Patient's last menstrual period was 08/29/2017 (exact date). n/a Heavy bleeding? Yes Intermenstrual bleeding/spotting? No Dysmenorrhea? No History of fibroids? No History of endometrial polyps? No Sexually active: Yes History of STDS: None Patient concerns for STD exposure: Yes: + HSV 1 test of lesion, partner w/ h/o oral HSV Pain with intercourse: No Postcoital bleeding: No Last Pap: many years uncertaion HPV: uncertain History of abnormal pap: No PAST MEDICAL HISTORY Diagnosis Date - History of breast cancer PAST SURGICAL HISTORY Procedure Laterality Date - SECTION HX 1990 - HERNIA REPAIR HX 05/2009 - MASTECTOMY HX Bilateral 05/05/2009 FAMILY HISTORY Problem Relation Age of Onset - Breast Cancer Mother SOCIAL HISTORY Social History Substance Use Topics - Smoking status: Current Every Day Smoker Packs/day: 0.50 Years: 5.00 Types: Cigarettes - Smokeless tobacco: Never Used Comment: vape - Alcohol use Yes Comment: occ REVIEW OF SYSTEMS No recent weight gain or weight loss. Abdomen: No abdominal pain, nausea, vomiting, diarrhea, or constipation. No bloating, early satiety, indigestion, or increased flatulence. Bladder: see HPI. EXAM: BP 126/84 Wt 171 lb (77.6kg) LMP 08/29/2017 GENERAL: pleasant, female in no apparent distress ABDOMEN: soft, no hernia, no masses, Mild tenderness in Generalized, rebound Absent and guarding Absent PELVIC: external genitalia normal, normal mons, normal hair distribution pattern, normal labia. normal Bartholin's glands, urethra, Hyder's glands, no vulvar lesions, normal appearing perineal body and perianal region, cervix surgically absent, cystocele 1st degree, rectocele 1st degree, atrophic changes, normal cervix, no lesions. No blood in vault BIMANUAL: uterus normal size, shape and consistency, no adnexal masses and non-tender RECTOVAGINAL: deferred. ASSESSMENT: PMB, thickened endometrium, genital HSV type 1, endometrial polyps PLAN: Reviewed US, endometrial biopsy that showed thickened endometrium and polyp tissue respectively. R/b/A/P to hysteroscopy DANDC w/ possible polyp resection were reviewed, her questions were answered to her satisfaction and she desires to proceed. HSV- gential type 1. reviewed this w/ her. Partner w/ h/o oral HSV. reassured they will not reinfect each other. However, d/w her she would be contagious to other partners potentially. Transmission reviewed MD Floridalma Gamboa MD 10/25/2017 12:50 PM Signed Please send letter about normal pap and follow up one year. MD Floridalma Garcia PSR 10/25/2017 2:40 PM Signed Pap logged and Normal Pap letter sent to patient Floridalma Botello PSR Referring Provider: SELF [[id number]] Allergies As of Date: 10/18/2017 (No Known Allergies) Date Reviewed: 09/27/2017 Reviewed by: Candy Asif - Fully Assessed Primary Visit Diagnosis:Visit for screening mammogram [Z12.31] Other Visit Diagnoses:Obesity, Class I, BMI 30-34.9 [E66.9] Special screening examination for human papillomavirus (HPV) [Z11.51] Screening for malignant neoplasm of cervix [Z12.4] Screening examination for venereal disease [Z11.3] PMB (postmenopausal bleeding) [N95.0] Epidermal thickening [L85.9] Endometrial polyp [N84.0] Herpes simplex vulvovaginitis [A60.04] Order(s):ASHLEY SCREENING [[id number]] Order #: [id number] FUTURE PAP FLUID CERVICAL SCREENING [[id number]] Order #: [id number]. #:[id number] GC/CHLAMYDIA DNA DET [SQGCCAMP] Order #: [id number]. #:[id number] HPV W/GENOTYPE [SQHPVHRR] Order #: [id number]. #:[id number] Prescriptions as of 10/18/2017 Sig: TOPIRAMATE 200 MG TABLET Take 200 mg by mouth twice da* BUPROPION HCL 100 MG TABLET Take 100 mg by mouth twice da* METHYLPHENIDATE ER 10 MG TABL* Take 30 mg by mouth once vladimir* Problem List As Of Date 10/18/2017 Noted Resolved Obesity, Class I, BMI 30-34.9 [E66.9] INVALID FOR* Letter Text Floridalma Sterling M.D. [facility] [address] [place], [place] [address] Celina Morgan [address] [facility] [address] 10/25/2017 [facility]: [id number] Dear Celina, We are pleased to inform you that your recent Pap Test was within normal limits. Because Pap tests are so effective in the early detection of cervical cancer, you are encouraged to continue having the test at regular intervals. You will be due for a 1 year Gynecological Exam after this date 10/18/2018. If you have any questions regarding the above information, do not hesitate to call our office at between the hours of 8:00 a.m. and 5:00 p.m. Sincerely, Floridalma Sterling M.D. Encounter Status:Closed by FLORIDALMA STERLING MD on 10/18/17 PROGRESS Observed: 10/03/2017 Status: COMPLETED Source: [place] 3:22 PM [facility] REPOSITORY O ID: [id number] Author: Christina Landon Service: (none) Author Type: Toilet Products Molder Type: Progress Notes Filed: 10/03/2017 3:22 PM Note Text: Radiology Service Progress Note PATIENT NAME: Celina Morgan DATE OF SERVICE: October 03, 2017 TIME: 3:22 PM PATIENT IDENTITY VERIFICATION COMPLETED USING TWO (2) METHODS: Patient confirmed name verbally and Date of . PATIENT GENDER DATA: Female. status: : No status: N/A PATIENT RELEVANT IMPLANT DATA REVIEWED: Not Applicable RADIOLOGY DEPARTMENT: Ultrasound PERIPHERAL IV DATA: Not applicable SIGNED BY: CHRISTINA LANDON RDMS RVT October 03, 2017 3:22 PM US FEMALE PELVIS Observed: 10/03/2017 Status: F Source: [facility] 3:19 PM [facility] REPOSITORY * * *Final Report* * * DATE OF EXAM: Oct 03 2017 3:19PM WRU [id number] - US FEMALE PELVIS TRANSVAG / PROCEDURE REASON: Postmenopausal bleeding * * * * Physician Interpretation * * * * EXAMINATION: US FEMALE PELVIS TRANSVAG CLINICAL HISTORY: Postmenopausal bleeding Comparison: None RESULT: Uterus measures 13.1 x 9.6 x 6.6 cm. Small subendometrial cyst in the mid uterine body posteriorly measures 0.9 cm. Bicornuate and/or septate uterus. Endometrium appears uniform , and measures 0.8 cm. on both sides. Right ovary is not visualized with the transabdominal or endovaginal probe. Left ovary appears normal and measures 2.5 x 2.4 x 1.7 cm. No free pelvic fluid. No evidence of pathologic adnexal mass. IMPRESSION: The endometrium is thick for a postmenopausal patient. Further evaluation recommended. Subcentimeter subendometrial cyst is seen. Bicornuate or septate uterus noted. Nonvisualization of the right ovary. Stone Rigger: [facility]ITAL[facility]asreen Transcribe Date/Time: Oct 03 2017 4:54P Dictated by : HAO ARENAS MD This examination was interpreted and the report reviewed and electronically signed by: HAO ARENAS MD on Oct 03 2017 4:58PM EST [id number] HSV1,2/VZV AMPLIF Collected: 09/27/2017 Status: F Source: [place] 2:10 PM [facility] REPOSITORY TYPE CODE TESTS RESULT OUT OF RANGE REFERENCE UNITS LAB HVZC Specimen Lesion Source LAB HRPSV1 Abnormal HSV Type 1, Positive for Alert HDA Herpes Simplex virus Type 1 by Molecular Detection. LAB HRPSV2 HSV Type 2, Negative for HDA Herpes Simplex virus Type 2 by Molecular Detection. LAB VZOSV V Zoster Negative for Virus, HDA Varicella Zoster virus by Molecular Detection. Performed By: #### HSVVZV #### [facility] [address] [address] SURGICAL PATHOLOGY Observed: 09/27/2017 Status: F Source: [place] 2:09 PM [facility] REPOSITORY Specimen originated from [facility] Specimen #: [id number] Submitting Physician: ANNA TIDWELL FINAL DIAGNOSIS Endometrium, biopsy - Fragments consistent with benign endometrial polyp in a background of benign endometrium. KSD/gp 09/29/2017 Barb Arredondo MD (Electronic Signature) SPECIMEN SUBMITTED A: ENDOMETRIAL, BIOPSY CLINICAL DATA pmb GROSS DESCRIPTION A. Received in formalin are multiple dozier, soft feathery segments of tissue aggregating to 3.0 x 1.0 x 0.1 cm. Totally submitted in one cassette. Gross examination performed at [facility], [address] [place] [address] 09/29/2017 1:02:50 AM Date of Report: 09/29/2017 Date of Procedure: 09/27/2017 Date of Receipt: 09/28/2017 Submitted by: ANNA TIDWELL Location: [facility] Diagnostic interpretation performed at [facility], [address] [place] [address]. CNOV Observed: 09/27/2017 Status: COMPLETED Source: [place] 1:30 PM [facility] REPOSITORY Office Visit (WOOB) CELINA MORGAN ([id number]) 1960 F Date Time Provider Department 09/27/17 1:30 PM ANNA TIDWELL (PETE) WOTREV During your visit today, we recorded the following information about you: Blood pressure Weight Height Last Period 120/86 77.7 kg 1.549 m 08/29/17 Anna Tidwell APRN.CNP 09/27/2017 3:49 PM Signed Celina Morgan is a 56 year old female who presents for problem visit Bleeding for 2 weeks in August. HPI: pt states that she has had a menses in over 3 years then last month she had 2 weeks of bleeding just like a period. Feels like there is weight in the pelvic area. She stop tamoxifen less than 1 year ago. She also is states that she has a sore on her labia that she noticed within the past 1-2 days- it was itchy and now is painful. Denies any fever, chills, or lifestyle changes in the past month. No past medical history on file. No past surgical history on file. No family history on file. Social History Marital status: Spouse name: Years of education: Number of children: Social History Main Topics Smoking status: Current Every Day Smoker Packs/day: 0.50 Years: 5.00 Types: Cigarettes Comment: vape Alcohol use: Yes Comment: occ Drug use: No Current Outpatient Prescriptions: topiramate (TOPAMAX) 200 mg tablet Take 200 mg by mouth twice daily. buPROPion (WELLBUTRIN) 100 mg tablet Take 100 mg by mouth twice daily. 2 tabs in am, 1 tab in pm methylphenidate ER (METADATE ER) 10 mg ER tablet Take 30 mg by mouth once daily. tamoxifen (NOLVADEX) 20 mg tablet Take 20 mg by mouth once daily. codeine-guaiFENesin (ROBITUSSIN AC) 10-100 mg/5 mL syrup Take 5-10 mL by mouth four times daily as needed for Cough. May cause drowsiness. ATIVAN 0.5 MG ORAL TAB prn MIDRIN 325 MG-65 MG-100 MG ORAL CAP prn SELENIUM SULFIDE 2.5 % TOP SHAM qhs face, chest, back, scalp as second lather--lather, wait 5-10 minutes, rinse off (Patient not taking: Reported on 06/30/2016) SULFACETAMIDE SODIUM-SULFUR 10 %-5 % (W/W) TOP CLSR am--face (Patient not taking: Reported on 06/30/2016) FINACEA 15 % TOP GEL qhs (Patient not taking: Reported on 06/30/2016) LORATADINE 10 MG ORAL TAB Take one(1) tablet daily. (Patient not taking: Reported on 06/30/2016) No current facility-administered medications for this visit. Allergies As of Date: 09/27/2017 (No Known Allergies) Fully Assessed 06/30/2016 REVIEW OF SYSTEMS Abdomen: No bloating, early satiety, indigestion, or increased flatulence. No abdominal pain, nausea, vomiting, diarrhea, or constipation. Bladder: No dysuria, gross hematuria, urinary frequency, urinary urgency, or incontinence. Expanded ROS: N/A Allergies and current medication updated:Yes EXAM: There were no vitals taken for this visit. GENERAL: pleasant, female in no apparent distress HEENT: Normocephalic, atraumatic, mucus membranes moist and no lesions CHEST: Normal inspiratory effort ABDOMEN: soft, non-tender and no masses PELVIC: external genitalia normal, normal Bartholin's glands, urethra, Hyder's glands, no cervical lesions, physiologic discharge present, normal appearing perineal body and perianal region, on the top left labia majora there are 2 open lesions the area is red and swollen BIMANUAL: uterus normal size, shape and consistency, no adnexal masses, non-tender and no cervical motion tenderness NEURO: alert and oriented x3,exam grossly non-focal EXTREMITIES: normal ASSESSMENT AND PLAN: PBM EMB performed and sample sent Pelvic ultrasound ordered HSV culture sent- will call with results Anna Tidwell APRN.ORDNANCE TRUCK INSTALLATION MECHANIC Celina Morgan is a 56 year old female who presents today for an endometrial biopsy for post menopausal bleeding. test: n/a UNIVERSAL PROTOCOL / SAFETY CHECKLIST Procedure to be performed: EMB Sign in Communication: Completed Time Out: Team Confirms the Correct Patient, Correct Procedure, Correct Site and Site Marking, Correct Position (if applicable), Prep and Dry Time (if applicable). Time: 1350 Affirmation of Time Out: YES Sign Out Discussion: Completed Anna Tidwell APRN.ORDNANCE TRUCK INSTALLATION MECHANIC PROCEDURE: EXTERNAL GENITALIA: labial lesions (see above) VAGINA: Normal in appearance without lesions BIOPSY: Speculum placed into the vagina with excellent visualization of the cervix. Cervix cleaned with betadine. Anterior lip of cervix grasped with single toothed tenaculum. Uterus sounded to 10 cm. Pipelle inserted into the uterus without difficulty and endometrial biopsy obtained. Specimen labeled and sent to pathology. Procedure Summary: Patient tolerated procedure well. ASSESSMENT: post menopausal bleeding PLAN: Specimens labeled and sent to Pathology. Will notify patient of results in 1-2 weeks. Post-procedure instructions reviewed and written material given to the patient. Anna Tidwell APRN.ORDNANCE TRUCK INSTALLATION MECHANIC Referring Provider: SELF [200] Allergies As of Date: 09/27/2017 (No Known Allergies) Date Reviewed: 09/27/2017 Reviewed by: Candy Asif - Fully Assessed Reason for Visit: Menstrual Problem [67] Primary Visit Diagnosis:PMB (postmenopausal bleeding) [N95.0] Other Visit Diagnosis:Vulvar lesion [N90.89] Order(s):HSV 1,2/VZV AMP MOLECULAR DETECT [SQHSVVZV] Order #: [id number] FUTURE PELVIC US WHI [[id number]] Order #: [id number]: 1 SURGICAL PATHOLOGY [[id number]] Order #: [id number] Prescriptions as of 09/27/2017 Sig: TOPIRAMATE 200 MG TABLET Take 200 mg by mouth twice da* BUPROPION HCL 100 MG TABLET Take 100 mg by mouth twice da* METHYLPHENIDATE ER 10 MG TABL* Take 30 mg by mouth once vladimir* Problem List As Of Date: 09/27/2017 (None) Medications Discontinued During This Encounter ATIVAN 0.5 MG ORAL TAB 0 11/24/2004 09/27/2017 Class: Historical Med Route: ORAL Sig: prn Disc: Reason for discontinue is not on file. codeine-guaiFENesin (ROBITUSSIN AC) * 120 * 0 06/30/2016 09/27/2017 Class: Print RX Route: ORAL Sig: Take 5-10 mL by mouth four times daily as needed for Cough. May cause drowsiness. Patient not taking: Reported on 09/27/2017 Disc: Reason for discontinue is not on file. FINACEA 15 % TOP GEL 50 g* 3 11/24/2004 09/27/2017 Class: Print RX Route: TOPICAL Sig: qhs Patient not taking: Reported on 06/30/2016 Disc: Reason for discontinue is not on file. LORATADINE 10 MG ORAL TAB (otc) 0 11/24/2004 09/27/2017 Class: Print RX Route: ORAL Sig: Take one(1) tablet daily. Patient not taking: Reported on 06/30/2016 Disc: Reason for discontinue is not on file. MIDRIN 325 MG-65 MG-100 MG ORAL CAP 0 11/24/2004 09/27/2017 Class: Historical Med Route: ORAL Sig: prn Disc: Reason for discontinue is not on file. SELENIUM SULFIDE 2.5 % TOP SHAM 4 oz* 3 11/24/2004 09/27/2017 Class: Print RX Route: TOPICAL Sig: qhs face, chest, back, scalp as second lather--lather, wait 5-10 minutes, rinse off Patient not taking: Reported on 06/30/2016 Disc: Reason for discontinue is not on file. SULFACETAMIDE SODIUM-SULFUR 10 %-5 %* 60 g* 2 11/24/2004 09/27/2017 Class: Print RX Route: TOPICAL Sig: am--face Patient not taking: Reported on 06/30/2016 Disc: Reason for discontinue is not on file. tamoxifen (NOLVADEX) 20 mg tablet 09/27/2017 Class: Historical Med Route: ORAL Sig: Take 20 mg by mouth once daily. Disc: Discontinued by another Health Care Provider Encounter Status:Closed by ANNA TIDWELL on 09/27/17 PROGRESS Observed: 09/27/2017 Status: COMPLETED Source: [place] 1:19 PM [facility] [place] REPOSITORY HNO ID: [id number] Author: Anna Ojeda) Yaw Service: (none) Author Type: Nurse Practitioner Type: Progress Notes Filed: 09/27/2017 3:49 PM Note Text: Celina Morgan is a 56 year old female who presents for problem visit Bleeding for 2 weeks in August. HPI: pt states that she has had a menses in over 3 years then last month she had 2 weeks of bleeding just like a period. Feels like there is weight in the pelvic area. She stop tamoxifen less than 1 year ago. She also is states that she has a sore on her labia that she noticed within the past 1-2 days- it was itchy and now is painful. Denies any fever, chills, or lifestyle changes in the past month. No past medical history on file. No past surgical history on file. No family history on file. Social History Marital status: Spouse name: Years of education: Number of children: Social History Main Topics Smoking status: Current Every Day Smoker Packs/day: 0.50 Years: 5.00 Types: Cigarettes Comment: vape Alcohol use: Yes Comment: occ Drug use: No Current Outpatient Prescriptions: topiramate (TOPAMAX) 200 mg tablet Take 200 mg by mouth twice daily. buPROPion (WELLBUTRIN) 100 mg tablet Take 100 mg by mouth twice daily. 2 tabs in am, 1 tab in pm methylphenidate ER (METADATE ER) 10 mg ER tablet Take 30 mg by mouth once daily. tamoxifen (NOLVADEX) 20 mg tablet Take 20 mg by mouth once daily. codeine-guaiFENesin (ROBITUSSIN AC) 10-100 mg/5 mL syrup Take 5-10 mL by mouth four times daily as needed for Cough. May cause drowsiness. ATIVAN 0.5 MG ORAL TAB prn MIDRIN 325 MG-65 MG-100 MG ORAL CAP prn SELENIUM SULFIDE 2.5 % TOP SHAM qhs face, chest, back, scalp as second lather--lather, wait 5-10 minutes, rinse off (Patient not taking: Reported on 06/30/2016) SULFACETAMIDE SODIUM-SULFUR 10 %-5 % (W/W) TOP CLSR am--face (Patient not taking: Reported on 06/30/2016) FINACEA 15 % TOP GEL qhs (Patient not taking: Reported on 06/30/2016) LORATADINE 10 MG ORAL TAB Take one(1) tablet daily. (Patient not taking: Reported on 06/30/2016) No current facility-administered medications for this visit. Allergies As of Date: 09/27/2017 (No Known Allergies) Fully Assessed 06/30/2016 REVIEW OF SYSTEMS Abdomen: No bloating, early satiety, indigestion, or increased flatulence. No abdominal pain, nausea, vomiting, diarrhea, or constipation. Bladder: No dysuria, gross hematuria, urinary frequency, urinary urgency, or incontinence. Expanded ROS: N/A Allergies and current medication updated:Yes EXAM: There were no vitals taken for this visit. GENERAL: pleasant, female in no apparent distress HEENT: Normocephalic, atraumatic, mucus membranes moist and no lesions CHEST: Normal inspiratory effort ABDOMEN: soft, non-tender and no masses PELVIC: external genitalia normal, normal Bartholin's glands, urethra, Hyder's glands, no cervical lesions, physiologic discharge present, normal appearing perineal body and perianal region, on the top left labia majora there are 2 open lesions the area is red and swollen BIMANUAL: uterus normal size, shape and consistency, no adnexal masses, non-tender and no cervical motion tenderness NEURO: alert and oriented x3,exam grossly non-focal EXTREMITIES: normal ASSESSMENT AND PLAN: PBM EMB performed and sample sent Pelvic ultrasound ordered HSV culture sent- will call with results Anna Tidwell APRN.PETE Celina Morgan is a 56 year old female who presents today for an endometrial biopsy for post menopausal bleeding. test: n/a UNIVERSAL PROTOCOL / SAFETY CHECKLIST Procedure to be performed: EMB Sign in Communication: Completed Time Out: Team Confirms the Correct Patient, Correct Procedure, Correct Site and Site Marking, Correct Position (if applicable), Prep and Dry Time (if applicable). Time: 1350 Affirmation of Time Out: YES Sign Out Discussion: Completed Anna Tidwell APRN.CNP PROCEDURE: EXTERNAL GENITALIA: labial lesions (see above) VAGINA: Normal in appearance without lesions BIOPSY: Speculum placed into the vagina with excellent visualization of the cervix. Cervix cleaned with betadine. Anterior lip of cervix grasped with single toothed tenaculum. Uterus sounded to 10 cm. Pipelle inserted into the uterus without difficulty and endometrial biopsy obtained. Specimen labeled and sent to pathology. Procedure Summary: Patient tolerated procedure well. ASSESSMENT: post menopausal bleeding PLAN: Specimens labeled and sent to Pathology. Will notify patient of results in 1-2 weeks. Post-procedure instructions reviewed and written material given to the patient. Anna Tidwell APRN.PETE ALLERGIES ALLERGIES DATE TYPE / CODE NAME / CODE REACTION SEVERITY SOURCE 03/03/2018 Drug clindamycin/A57186 Diarrhea Unknown [place] Allergy/416 2794(RXNORM) [facility] 395324([facility] ED CT) Repository 01/05/2017 DRUG CLINDAMYCIN DIARRHEA [facility] INGREDI/419 [facility] 050441([facility] ED CT) Drug NO KNOWN ALLERGIES [facility] Class/55205 [address] [place] 1003(SNOMED Repository CT) ENCOUNTERS ENCOUNTERS ADMIT/DISCHARGE ACCOUNT ADMITTING ENCOUNTER LOCATION SOURCE NUMBER CLASS 03/03/2018/03/03/20 [id number] Emergency [place] [address] ing:ED Repository 12/09/2017/12/14/19 [id number] Ambulatory [address] Repository 11/17/2017/08/30 [id number] Ambulatory [place] [facility] ing[place] [place] 11/15/2017/11/17/19 [id number] Ambulatory [address] [place] Repository 11/15/2017/11/17/19 [id number] Ambulatory [address] [place] Repository 11/09/2017/11/11/19 [id number] Ambulatory [address] [place] Repository 10/18/2017/10/20/19 [id number] Ambulatory [address] [place] Repository 10/03/2017/10/04/19 [id number] Ambulatory [address] [place] Repository 09/27/2017/09/29/19 [id number] Ambulatory [address] Repository PAYERS PAYERS ENCOUNTER GUARANTOR PAYER SUBSCRIBER SOURCE 03/03/2018 CELINA C Primary CELINA C Tristan [id number] W Insurance:OB GENEX PALMERDOB: [facility] [id number] Number: Repository [id number]: [phone] [id number] [phone] (HP) Date: [address] [address]XK: 03/03/2018 Secondary NOT GIVENUNK [place] Insurance:SELF PAY [facility] Number: Effective Repository Date:2018-03-03 11/17/2017 CELINA C Primary NOT GIVENUNK [place] [id number] W Insurance:SELF PAY [place], [place] Number: Effective Repository [id number]: [phone]) Date:2017-10-24 [phone] (HP)
== END 2018-03-03 16:21 | disposition home or self-care (01) ==
PROVIDERS: Emergency Provider Emergency Medicine
DX: Z77.21 Contact with and (suspected) exposure to potentially hazardous body fluids (principal); Z85.3 Personal history of malignant neoplasm of breast
CPT/HCPCS: 86703; 86803; 87340; 99282

== ENCOUNTER 2019-03-14 14:30 | Emergency (ER) | payer BC, SELFPAY ==
[2019-03-14 14:32] VITALS: BP 212/99; PULSE 106; RESP 18; TEMP 37.3; BMI 35.2
--- NOTE | 2019-03-14 14:54 | CT_ITS ---
STUDY: CT ABDOMEN AND PELVIS WITHOUT CONTRAST REASON FOR EXAM: Female, 58 years old. VAGINAL BLEEDING W/ CLOTS X1 WEEK -- HX-BILAT BREAST CA W/ BILAT MASECTOMY -- SURG-TRAM FLAP,VENTRAL HERNIA RADIATION DOSAGE (If Supplied By Facility): CTDIvol = ( 14.60 ) mGy, DLP = ( 671.26 ) mGycm TECHNIQUE: Transaxial images were obtained from the dome of the diaphragm to the symphysis pubis without oral contrast, and without intravenous contrast. Sagittal and coronal images were reconstructed. Individualized dose optimization techniques were used for this CT. COMPARISON: None. FINDINGS: The visualized lung bases are unremarkable. The visualized portions of the heart are within normal limits. Normal liver. Normal gallbladder and extrahepatic biliary system. Normal spleen. Normal pancreas. Normal bilateral adrenal glands. Normal right kidney. Normal left kidney. Normal visualized stomach. Normal small intestine. There are multiple colonic diverticula consistent with diverticulosis. The appendix is visualized and appears normal. Normal abdominal aorta. Normal inferior vena cava. Normal retroperitoneum. Normal urinary bladder. There is marked enlargement of the uterus. There is continued lobulation, suggestive of leiomyomas. There is a 4 cm right ovarian cyst-type lesion. Normal abdominal wall. Normal osseous structures. CT/Abdomen/Pelvis without Cont IMPRESSION: Marked enlargement of the uterus. 4 cm right ovarian cyst-type lesion. Further evaluation with sonography is recommended. Electronically Signed: Camacho Mayes MD at 15:35 EST Tel , Service support ,
--- NOTE | 2019-03-14 14:58 | ED.DCSUM_ITS ---
- ER Visit Summary Date of Service: 03/14/19 Chief Complaint: Vaginal bleeding History of Present Illness: The patient is a 58 F who presents with vaginal bleeding that became worse today. Patient states that is been getting worse over the past 3 days. Patient states she started with spotting 3 days ago. Patient states that today it is heavy. Patient states she is passing clots. Patient states this is worse with standing and bending forward. Patient admits to some mild lower abdominal and pelvic pain. Patient describes it as a heavy pain. Patient denies any dysuria or urinary frequency. Patient states her last menstrual period prior to this was over a year ago. Physical Examination: Vital signs are stable except for an elevated blood pressure of 212/99. Patient is afebrile. Patient is in no acute distress. Oral mucosa is pink and moist. Neck is supple. Trachea is midline. There is no JVD. Heart was regular rate and rhythm. Lungs are clear and equal bilaterally. Abdomen is soft. Bowel sounds are normal. There is mild lower abdominal tenderness. There is no rebound or guarding noted. Cranial nerves II through XII are intact. There are no focal motor or sensory deficits noted. Test Results: CBC and metabolic profile were within normal limits. Urinalysis shows 250 of occult blood with 25-50 red blood cells but no evidence of urinary tract infection. CT scan of the abdomen and pelvis was obtained. There is a large uterine fibroid. There is also a 4 cm right ovarian cyst. This was interpreted by the radiologist. Emergency Department Course and Treatment: Orthostatic vital signs were obtained and were normal. Patient was feeling better on reevaluation. Patient was advised of her results. Case was discussed with Dr. Wilson who is on-call for Dr. Perez. They will be able to follow-up with the patient in the office this week. Patient was advised to call their office tomorrow morning and schedule an appointment. Patient was given a note for work for tomorrow. Patient was understanding and agreeable with the plan. All questions were answered. Disposition: Discharge home Impression: Vaginal bleeding This note was generated with [employer] software. It may contain incorrect words, spelling, and punctuation that were not noted in review of the chart prior to signing ED Disposition - Plan for ED Patient: Disposition: Home or Assisted Living Diagnosis: Vaginal bleeding Instructions: Dysfunctional Uterine Bleeding Referrals: Care Physician,No Primary [Primary Care Provider] - Carlyn Perez MD [STAFF PHYSICIAN] - As soon as possible
[2019-03-14 15:07] LABS: Absolute Lymphocyte Count 1.93 X10^3/uL (0.83-4.51); Absolute Neutrophil Count 5.5 X10^3/uL (2.0-7.7); Basophil# 0.03 X10^3/uL; Basophil% 0.4 % (0-1); Eosinophil# 0.13 X10^3/uL; Eosinophils% 1.6 % (0-5); Hematocrit 39.8 % (37-47); Hemoglobin 13.1 g/dL (12.0-15.0); Lymphocyte # 1.93 X10^3/ul (4.0); Lymphocyte % 23.5 % (19-41); Mean Corp Hgb Conc 32.9 g/dL (32-36); Mean Corpuscular Hgb 31.6 pg (27.0-32.0); Mean Corpuscular Volume 95.9 fL (81-99); Mean Platelet Vol. 9.6 fl (6.2-12.0); Monocyte# 0.55 X10^3/uL; Monocyte% 6.7 % (0-10); NRBC Flagged by Analyzer 0 % (0-5); Neutrophil # 5.54 X10^3/uL (2.7-7.7); Neutrophil % 67.6 % (47-70); Platelet Count 215 K/mm3 (150-450); RBC Distribution Width CV 14.5 % (11.6-14.6); RBC Distribution Width SD 51.3 fl (35.1-43.9); Red Blood Count 4.15 M/mm3 (4.2-5.4); White Blood Count 8.2 K/mm3 (4.4-11.0)
[2019-03-14 15:21] LABS: Anion Gap 8 (5-15); BUN 16 mg/dL (7-18); BUN/Creat Ratio 19.3 RATIO (10-20); Calcium,Total 8.6 mg/dL (8.5-10.1); Chloride 108 mmol/L (98-107); Creatinine, Serum 0.83 mg/dL (0.55-1.02); EST Glomerular Filtration Rate 76 mL/min (>60); Est Glom Filt Rate - Afr Amer 91 mL/min (>60); Estimated Creatinine Clearance 56.43 ml/min; Glucose 103 mg/dL (74-106); Potassium 3.9 mmol/L (3.5-5.1); Sodium Level 141 mmol/L (136-145)
[2019-03-14 15:28] LABS: Prothrombin Time (Protime)PT. 13.2 SECONDS (11.7-14.9)
[2019-03-14 15:29] LABS: Partial Thromboplast Time 25.9 Seconds (24.1-36.2)
[2019-03-14 16:08] VITALS: BP 166/89; BP 188/103; BP 188/112; PULSE 86; PULSE 92; PULSE 93; RESP 16; O2SAT 96
[2019-03-14 16:32] LABS: Bacteria 0 SEEN /hpf (None Seen); Mucous, Urine 0 SEEN /hpf (<or=2+); White Blood Cells 0 SEEN /hpf (0-5)
[2019-03-14 16:36] LABS: Color, Urine Yellow (Yellow); Glucose, Dipstick Normal (Normal); Ketone-Dipstick Negative (Negative); Leukocyte Esterase-Dipstick Negative /ul (Negative); Nitrite-Dipstick Negative (Negative); Occult Blood-Urine 250 /ul (Negative); Protein-Dipstick Negative (Negative); Specific Gravity, Urine 1.015 (1.002-1.030); Urine Bilirubin Dipstick Negative (Negative); Urine Clarity Sl. Cloudy (Clear); Urine Urobilinogen Normal (Normal)
[2019-03-14 16:43] LABS: Red Blood Cells-Urine 25-50 SEEN /hpf (0-5); Squamous Epithelial Cells - UA 0-5 SEEN /hpf (5-10)
[2019-03-14 18:15] VITALS: BP 170/80; PULSE 80; RESP 14; RESP 18; O2SAT 97
== END 2019-03-14 18:48 | disposition home or self-care (01) ==
PROVIDERS: Emergency Provider Emergency Medicine
DX: N93.9 Abnormal uterine and vaginal bleeding, unspecified (principal); N83.201 Unspecified ovarian cyst, right side; D25.9 Leiomyoma of uterus, unspecified; Z72.0 Tobacco use
CPT/HCPCS: 74176; 80048; 81001; 85025; 85610; 85730; 94760; 99284; A4216

== ENCOUNTER 2019-03-15 11:56 | Day surgery (SDC) | payer BC, SELFPAY ==
[2019-03-14 14:32] VITALS: BMI 35.2
[2019-03-15 12:59] VITALS: BP 143/83; PULSE 77; RESP 14; TEMP 36.8; O2SAT 97; BMI 34.8
[2019-03-15] MEDS: Lactated Ringers 1,000 ML 100 ML IV (13:29)
--- NOTE | 2019-03-15 13:55 | EMB_PTH ---
PATIENT: CELINA BURGOS LOC: [facility] [place] U#:[id number] AGE/SX: 58/F ROOM: RE03/15/[address]: Dr. Carlyn Perez MD : 1960 BED: DIS: 03/15/2019 SPEC #: [id number] RECD: 03/15/19 15:38 STATUS: RADHA REMichael #: [id number] CHARO: 03/15/19 13:[address]: Carlyn Perez DEPT: SURGICAL PATHOLOGY RECD BY: Raz Weiner ENTERED: 03/16/19 09:20 SP TYPE: ENDOM BX/C ROSALIE DR: No Primary Care Phys Tissues: Endometrium, NOS Procedures: Surgery Specimen Level IV HEADER OPERATION: Hysteroscopy, dilation and curettage PRE-OP DIAGNOSIS: Postmenopausal bleeding TISSUE SUBMITTED: Endometrial curettings MICROSCOPIC DIAGNOSIS Endometrium, curettings: Fragment of secretory endometrium with glandular and stromal breakdown. Polypoid fragments of endocervix with nabothian cysts. See comment. AM:ayaka 03/19/19 COMMENT Clinical correlation is suggested. MICROSCOPIC DESCRIPTION Slides are reviewed. GROSS DESCRIPTION Received in fixative is one container labeled with the patient's name and designated endometrial curettings. The specimen consists of multiple irregular fragments of rubbery pink-white soft tissue and friable reddish-dozier blood clot-like material that in aggregate measure 5 x 3 x 0.2 cm. The specimen is totally submitted in two cassettes. / AM:ayaka 03/16/19 TC:5 CPT: 40218
--- NOTE | 2019-03-15 14:34 | HP.PCM_ITS ---
History and Physical Date of Admission: 03/15/19 58-year-old female presents complaining of 1 week of postmenopausal bleeding. It got to the point where she is bleeding through her clothing yesterday. She states she is afraid to stand up because she just gushes blood every time she does. She saturated her bed last night with blood because of the heavy bleeding. She went to the emergency room yesterday and her hemoglobin was stable and she was sent home. However she arrived in the office today and was still having active bleeding from her cervical loss. She felt a little lightheaded and fatigued. She denies any chest pain or shortness of breath. She denies any fevers or chills. 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 Since then she is only had a small amount of bleeding, nothing like this : No dysuria or hematuria Heme: No history of prolonged bleeding or easy bruising Past surgical history: Significant for mastectomy with reconstruction, hernia repair, 1 section, hysteroscopy D&C Allergies: Clindamycin Locations: Fepg-[id number] medications as needed no regular prescription medications PE: General- awake, alert, NAD abd- soft, nondistended, mildly tender ext- trace edema lungs - CTAB heart- RRR a/p 58-year-old female with acute postmenopausal bleeding and uterine fibroid Risk benefits and alternatives to hysteroscopy dilation and curettage were discussed with patient, questions were answered to her satisfaction she desires to proceed. She has a history of a previous blood transfusion and does have abnormal antibodies. Should a transfusion be necessary, it would require some time to obtain blood products. Patient states understanding of this and desires to proceed. Comfortable proceeding without type and crossmatch the patient is hemodynamically stable and this is a low risk surgery.
[2019-03-15 14:40] LABS: Absolute Neutrophil Count 4.9 X10^3/uL (2.0-7.7); Basophil# 0.04 X10^3/uL; Basophil% 0.5 % (0-1); Eosinophil# 0.21 X10^3/uL; Eosinophils% 2.6 % (0-5); Hematocrit 33.9 % (37-47); Hemoglobin 10.8 g/dL (12.0-15.0); Lymphocyte % 30.8 % (19-41); Mean Corp Hgb Conc 31.9 g/dL (32-36); Mean Corpuscular Volume 97.4 fL (81-99); Mean Platelet Vol. 9.6 fl (6.2-12.0); Monocyte# 0.43 X10^3/uL; Monocyte% 5.3 % (0-10); NRBC Flagged by Analyzer 0 % (0-5); Neutrophil # 4.91 X10^3/uL (2.7-7.7); Neutrophil % 60.6 % (47-70); Platelet Count 189 K/mm3 (150-450); RBC Distribution Width CV 14.9 % (11.6-14.6); RBC Distribution Width SD 53.5 fl (35.1-43.9); Red Blood Count 3.48 M/mm3 (4.2-5.4); White Blood Count 8.1 K/mm3 (4.4-11.0)
--- NOTE | 2019-03-15 14:56 | DCINST_ITS ---
Discharge Diet: No Restrictions Discharge Activity: Return to Normal Activity, May Shower, May Take a Tub Bath - in 2 weeks. May shower in (days): 1 May resume sexual activity in: 2 weeks Call your doctor if you observe: Fever of 101 or Higher, Inability to urinate, Using more than one pad per hour, Uncontrolled pain Allergies/Adverse Reactions: Allergies clindamycin Adverse Reaction (Verified 03/15/19 12:50) Diarrhea Medications to take at Discharge NK 03/03/18 Primary Care Physician: Care Physician,No Primary [Primary Care Provider] - Test Results: Test results from this visit will be discussed in further detail at your follow- up appointment, if applicable. Please Follow Up With: Carlyn Perez MD - [phone] When: 2-4 weeks
--- NOTE | 2019-03-15 15:17 | PCM.OPRPT ---
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 The weighted speculum was placed in the vagina and the anterior lip of the cervix was grasped with a single-tooth tenaculum. A paracervical block was administered with 1% lidocaine with 1-100,000 epinephrine solution. The cervix was dilated serially with Hegar dilators. The 5mm hysteroscope was placed into the uterine cavity and the above findings were noted. Bilateral tubal ostia were not notably identified. The hysteroscope was removed. There was a polypoid appearing lesion starting to expel from the cervical loss, this was grasped with polyp forceps and with twisting motion it was removed. A gentle sharp curettage was done of the uterine cavity. The instruments were removed from the vagina. The specimen was handed off and sent to pathology. All sponge and needle counts were correct. Vaginal sweep was performed by me. The patient was awakened and taken to the recovery room in stable condition. Hysteroscopic ins: 900cc normal saline Hysteroscopic outs:650cc Findings: Endometrial cavity: Ragged endometrium no discrete abscess noted, no interim cavitary fibroid Cervix: Normal Vagina: Normal
[2019-03-15 15:23] VITALS: BP 143/83; BP 147/91; PULSE 108; RESP 18; TEMP 36.9; O2SAT 99
[2019-03-15 15:30] VITALS: BP 138/81; BP 143/83; PULSE 106; RESP 18; O2SAT 100
[2019-03-15 15:35] VITALS: BP 133/80; BP 143/83; PULSE 99; RESP 16; O2SAT 100
[2019-03-15 15:38] VITALS: BP 131/77; BP 143/83; PULSE 96; RESP 16; TEMP 36.8; O2SAT 99
[2019-03-15 16:38] VITALS: BP 143/79; BP 143/83; PULSE 93; RESP 16; TEMP 36.4; O2SAT 98
== END 2019-03-15 16:40 | disposition home or self-care (01) ==
LOC: SDC 11:58 → AC 12:00
PROVIDERS: Visit Provider Obstetrics & Gynecology
PROC: 0UDB8ZZ Extraction of Endometrium, Via Natural or Artificial Opening Endoscopic (ICD-10-PCS; CPT 58558; principal; 2019-03-15 13:45)
DX: D25.9 Leiomyoma of uterus, unspecified (principal); N88.8 Other specified noninflammatory disorders of cervix uteri; N95.0 Postmenopausal bleeding; Z88.1 Allergy status to other antibiotic agents; Z90.13 Acquired absence of bilateral breasts and nipples
CPT/HCPCS: 58558; 36415; 85025; 86850; 86900; 86901; 88305; J7120; J2405